=== PATIENT | female | born 1950 | race Caucasian/White ===

== ENCOUNTER 2017-09-19 16:18 | Emergency (ER) | payer MEDICARE, BC ==
[~2017-09-19] VITALS: Ht 157.5 cm; Wt 48.0 kg
[2017-09-19 16:29] VITALS: BP 120/56; PULSE 102; RESP 16; TEMP 98; O2SAT 97
[2017-09-19] MEDS ORDERED: ATEN25TA PO (16:59)
[2017-09-19] MEDS ORDERED: LEVO.1 PO (16:59)
--- NOTE | 2017-09-19 17:22 | RADRPT ---
EXAM DATE/TIME: 09/19/2017 17:12 [place] COMPARISON: No previous studies available for comparison. INDICATIONS : Right sided rib pain post fall onto rocks yesterday MEDICAL HISTORY : Prior right lung collapse SURGICAL HISTORY : None. ENCOUNTER: Initial ACUITY: 1 day PAIN SCORE: 10/10 LOCATION: Right posterior lower ribs FINDINGS: Multiple views of the right ribs were performed. There is no evidence of displaced fracture. No minerva tructive lesions or areas of periosteal thickening are seen. Expiratory view of the chest is negativ e for pneumothorax. The mediastinal structures are midline. CONCLUSION: No definite acute rib fractures. Jamin Peterson MD on September 19, 2017 at 17:19 Board Certified Radiologist. This report was verified electronically.
[2017-09-19] MEDS ORDERED: TRAM50 PO (17:50)
--- NOTE | 2017-09-19 17:50 | PD ---
HPI Chief Complaint: Back/ Neck Pain or Injury Time Seen by Provider: 17:06 Travel History International Travel<30 days: No Contact w/Intl Traveler<30days: No Traveled to known affect area: No History of Present Illness HPI 67-year-old female here with right posterior rib pain after she fell from a standing position yesterday. She reports that she tripped falling backwards onto the ground. There was no head injury or loss of consciousness. She is not anticoagulated. She reports pain in the ribs which is worse with deep inspiration and palpation of the area. No shortness of breath. Symptom severity is moderate. No aggravating or alleviating factors. PFSH Past Medical History Hx Anticoagulant Therapy: No Arthritis: Yes Heart Rhythm Problems: Yes (tachy) Cardiovascular Problems: Yes (CHOL) Diabetes: No Diminished Hearing: No Thyroid Disease: Yes Tetanus Vaccination: Unknown Influenza Vaccination: No ?: Not Past Surgical History Abdominal Surgery: Yes (bowel resection) Appendectomy: Yes Section: Yes Tonsillectomy: Yes Social History Alcohol Use: No Tobacco Use: No Substance Use: No Allergies-Medications (Allergen,Severity, Reaction): Coded Allergies: meperidine (Verified Allergy, Severe, 09/19/17) Reported Meds & Prescriptions Reported Meds & Active Scripts Active Ultram (Tramadol HCl) 50 Mg Tab 50 Mg PO Q6H PRN Reported Atenolol 25 Mg Tab 12.5 Mg PO DAILY Synthroid (Levothyroxine Sodium) 100 Mcg Tab 100 Mcg PO DAILY Review of Systems Except as stated in HPI: all other systems reviewed are Neg General / Constitutional: No: Fever Eyes: No: Visual changes HENT: No: Headaches Cardiovascular: No: Chest Pain or Discomfort Respiratory: No: Shortness of Breath Gastrointestinal: No: Abdominal Pain Genitourinary: No: Dysuria Musculoskeletal: No: Pain Physical Exam Narrative GENERAL: Alert and well-appearing 67-year-old female SKIN: Warm and dry. HEAD: Normocephalic. Atraumatic EYES: Pupils equal, round, reactive to light. EOMs intact. No injection or drainage. NECK: Supple, trachea midline. No cervical midline tenderness. CARDIOVASCULAR: Regular rate and rhythm . RESPIRATORY: Breath sounds equal bilaterally. No accessory muscle use. Even and equal chest rise. + Tenderness right posterior ribs. No palpable fracture. No crepitus. GASTROINTESTINAL: Abdomen soft, non-tender, nondistended. MUSCULOSKELETAL: No cyanosis, or edema. BACK: Nontender spine. Without obvious deformity. No CVA tenderness. Data Data Last Documented VS Vital Signs Date Time Temp Pulse Resp B/P (MAP) Pulse Ox O2 Delivery O2 Flow Rate FiO2 09/19/17 16:29 98.0 102 16 120/56 (77) 97 Orders Orders Ribs, Uni (W/Exp Cxr-Min 3vw) (09/19/17 ) MDM Medical Decision Making Medical Screen Exam Complete: Yes Emergency Medical Condition: Yes Differential Diagnosis Rib fracture, pneumothorax, contusion, Narrative Course 67-year-old female here with right posterior rib pain after she fell from a standing position yesterday. No palpable fracture. She has breath sounds bilaterally. X-rays negative for rib fracture or pneumothorax. Diagnosis Primary Impression: Rib contusion Qualified Codes: S20.211A - Contusion of right front wall of thorax, initial encounter Referrals: Primary Care Physician Additional Instructions: Medication as directed. Follow-up with your primary doctor. Return if you develop new or worsening symptoms. Scripts Tramadol (Ultram) 50 Mg Tab 50 MG PO Q6H Y for PAIN, #12 TAB 0 Refills Prov: Yanni Armando 09/19/17 Disposition: 01 DISCHARGE HOME Condition: Stable Yanni Armando September 19, 2017 17:50
== END 2017-09-19 18:04 | disposition home or self-care (01) ==
LOC: PHEFT 16:18
DX: S20.219A Contusion of unspecified front wall of thorax, initial encounter (principal); W01.0XXA Fall on same level from slipping, tripping and stumbling without subsequent striking against object, initial encounter; M19.90 Unspecified osteoarthritis, unspecified site
CPT/HCPCS: 71101; 99283